=== PATIENT | male | born 1980 | race Caucasian/White ===

== ENCOUNTER 2019-05-27 15:26 | Emergency (ER) | payer SELFPAY ==
[2019-05-27] MEDS ORDERED: ASPIRIN 81 MG TABLET, CHEWABLE PO ONE (15:45)
--- NOTE | 2019-05-27 15:47 | ER Document Report ---
ED Medical Screen (RME) - General Chief Complaint: Chest Pain Stated Complaint: CHEST PAIN Time Seen by Provider: 05/27/19 15:42 Mode of Arrival: Ambulatory Information source: Patient Notes: 38-year-old male presents emergency department with midsternal chest pain that started today around 10. He reports that he was at work at [employer] when he started having cp. He has taken Zantac Tums without relief of symptoms. Reports he feels slightly short of breath. He became diaphoretic prior to arrival reports he has had pericarditis twice. Reports it feels around the same. Ports family history of cardiac disease. I have greeted and performed a rapid initial assessment of this patient. A comprehensive ED assessment and evaluation of the patient, analysis of test results and completion of the medical decision making process will be conducted by additional ED providers. Dictation of this chart was performed using voice recognition software; therefore, there may be some unintended grammatical errors. TRAVEL OUTSIDE OF THE [place] IN LAST 30 DAYS: No - Related Data Allergies/Adverse Reactions: No Known Allergies Allergy (Unverified 05/27/19 15:27) Past Medical History - Social History Frequency of alcohol use: None Drug Abuse: None Physical Exam - Vital signs Vitals: Temp Pulse Resp BP Pulse Ox 97.4 F 59 L 18 142/66 H 99 05/27/19 15:36 05/27/19 15:36 05/27/19 15:36 05/27/19 15:36 05/27/19 15:36 Course - Vital Signs Vital signs: Temp Pulse Resp BP Pulse Ox 97.4 F 59 L 18 142/66 H 99 05/27/19 15:36 05/27/19 15:36 05/27/19 15:36 05/27/19 15:36 05/27/19 15:36
[2019-05-27 16:16] LABS: HEMOGLOBIN 14.8 g/dL (13.5-17.0); MEAN CORPUSCULAR HGB CONC 34.4 g/dL (32.0-36.0); MEAN CORPUSCULAR VOLUME 84 fl (80-97); PLATELET COUNT 308 10^3/uL (150-450); RED CELL DISTRIBUTION WIDTH 13.2 % (11.5-14.0); WHITE BLOOD COUNT 10.6 10^3/uL (4.0-10.5)
[2019-05-27 16:26] LABS: APPEARANCE,URINE CLEAR; BILIRUBIN,URINE NEGATIVE (NEGATIVE); COLOR,URINE YELLOW; GLUCOSE, URINE NEGATIVE (NEGATIVE); KETONES,URINE NEGATIVE (NEGATIVE); LEUKOCYTE ESTERASE,URINE NEGATIVE (NEGATIVE); NITRITE,URINE NEGATIVE (NEGATIVE); PROTEIN,URINE NEGATIVE (NEGATIVE); URINE SPECIFIC GRAVITY 1.018; UROBILINOGEN,URINE NEGATIVE mg/dL (<2.0)
[2019-05-27 16:33] LABS: ALBUMIN 4.6 g/dL (3.5-5.0); ALKALINE PHOSPHATASE 53 U/L (38-126); ANION GAP 11 (5-19); ASPARTATE AMINO TRANSFERASE 79 U/L (17-59); BILIRUBIN,DIRECT 0.2 mg/dL (0.0-0.4); BILIRUBIN,TOTAL 0.4 mg/dL (0.2-1.3); BLOOD UREA NITROGEN 14 mg/dL (7-20); CALCIUM 10.4 mg/dL (8.4-10.2); CARBON DIOXIDE 30 mmol/L (22-30); CHLORIDE 102 mmol/L (98-107); GLUCOSE 117 mg/dL (75-110); POTASSIUM 4.3 mmol/L (3.6-5.0); TOTAL PROTEIN 7.6 g/dL (6.3-8.2)
[2019-05-27 16:37] LABS: ABSOLUTE LYMPHOCYTES# (MANUAL) 2.9 10^3/uL (0.5-4.7); ABSOLUTE MONOCYTES # (MANUAL) 1.1 10^3/uL (0.1-1.4); BASOPHILS % (MANUAL) 1 % (0-2); EOSINOPHILS % (MANUAL) 3 % (0-6); LYMPHOCYTES % (MANUAL) 25 % (13-45); MONOCYTES % (MANUAL) 10 % (3-13); SEGMENTED NEUTROPHILS % (MAN) 59 % (42-78); TOTAL CELLS COUNTED 100
[2019-05-27 16:38] LABS: PLATELET COMMENT ADEQUATE; POLYCHROMASIA SLIGHT; TOXIC GRANULATION 1+
[2019-05-27 16:41] LABS: CREATINE KINASE 2860 U/L (55-170)
--- NOTE | 2019-05-27 16:51 | RADIOLOGY REPORT (SQ) ---
EXAM DESCRIPTION: CHEST 2 VIEWS COMPLETED DATE/TIME: 05/27/2019 4:39 pm REASON FOR STUDY: CP COMPARISON: None. EXAM PARAMETERS: NUMBER OF VIEWS: two views TECHNIQUE: Digital Frontal and Lateral radiographic views of the chest acquired. RADIATION DOSE: NA LIMITATIONS: none FINDINGS: LUNGS AND PLEURA: No opacities, masses or pneumothorax. No pleural effusion. MEDIASTINUM AND HILAR STRUCTURES: No masses or contour abnormalities. HEART AND VASCULAR STRUCTURES: Heart normal size. No evidence for failure. BONES: No acute findings. HARDWARE: None in the chest. OTHER: No other significant finding. IMPRESSION: NO ACUTE RADIOGRAPHIC FINDING IN THE CHEST. TECHNICAL DOCUMENTATION: JOB ID: [id number] [employer]- All Rights Reserved Reading location - IP/workstation name: [email or web address]
[2019-05-27] MEDS ORDERED: NORMAL SALINE 1000 ML 1,000 ML IV ONE (17:28)
[2019-05-27] MEDS ORDERED: INDOMETHACIN 50 MG CAPSULE PO ONE (17:28)
--- NOTE | 2019-05-27 18:39 | EKG REPORT ---
SEVERITY:- ABNORMAL ECG - SINUS RHYTHM CONSIDER LEFT VENTRICULAR HYPERTROPHY : Confirmed by: Cricket Barr MD 27-May-2019 18:38:03
--- NOTE | 2019-05-27 19:01 | ER Document Report ---
ED Cardiac - General Chief Complaint: Chest Pain Stated Complaint: CHEST PAIN Time Seen by Provider: 05/27/19 15:42 Mode of Arrival: Ambulatory TRAVEL OUTSIDE OF THE [place] IN LAST 30 DAYS: No - HPI Notes: Patient presents complaining of chest pain. He states it started approximately 10 AM today. It has been constant. Nothing is made it better or worse. It was a sharp sensation in the center of his chest. He did have some sweating. He did have some shortness of breath. No significant nausea. No vomiting or diarrhea. No recent cold symptoms. No trauma. He denies any new or recent stress. He he states he did have a previous cardiac evaluation approximately 5 years ago which was unremarkable. He states that this was done in [place]. He does smoke daily. His father did of a heart attack at 44. Patient exercises daily without chest pain. Patient states he has had pericarditis twice in the past and this feels similar. - Related Data Allergies/Adverse Reactions: No Known Allergies Allergy (Unverified 05/27/19 15:27) Past Medical History - General Information source: Patient - Social History Smoking Status: Current Every Day Smoker Frequency of alcohol use: None Drug Abuse: None Family History: CAD Patient has suicidal ideation: No Patient has homicidal ideation: No Past Surgical History: Reports: Hx Orthopedic Surgery - left knee Review of Systems - Review of Systems Constitutional: denies: Chills, Fever Cardiovascular: Chest pain. denies: Palpitations Respiratory: Short of breath. denies: Cough Gastrointestinal: denies: Abdominal pain -: Yes All other systems reviewed and negative Physical Exam - Vital signs Vitals: Temp Pulse Resp BP Pulse Ox 97.4 F 59 L 18 142/66 H 99 05/27/19 15:36 05/27/19 15:36 05/27/19 15:36 05/27/19 15:36 05/27/19 15:36 Interpretation: Normal - General General appearance: Appears well, Alert - HEENT Head: Normocephalic, Atraumatic Eyes: Normal Pupils: PERRL - Respiratory Respiratory status: No respiratory distress Chest status: Nontender Breath sounds: Normal Chest palpation: Normal - Cardiovascular Rhythm: Regular Heart sounds: Normal auscultation Murmur: No - Abdominal Inspection: Normal Distension: No distension Bowel sounds: Normal Tenderness: Nontender Organomegaly: No organomegaly - Back Back: Normal, Nontender - Extremities General upper extremity: Normal inspection, Nontender, Normal color, Normal ROM, Normal temperature General lower extremity: Normal inspection, Nontender, Normal color, Normal ROM, Normal temperature, Normal weight bearing. No: Valarie's sign - Neurological Neuro grossly intact: Yes Cognition: Normal Orientation: AAOx4 Phoenix Coma Scale Eye Opening: Spontaneous Phoenix Coma Scale Verbal: Oriented Néstor Coma Scale Motor: Obeys Commands Néstor Coma Scale Total: 15 Speech: Normal Motor strength normal: LUE, RUE, LLE, RLE Sensory: Normal - Psychological Associated symptoms: Normal affect, Normal mood - Skin Skin Temperature: Warm Skin Moisture: Dry Skin Color: Normal Course - Re-evaluation Re-evalutation: 05/27/19 19:01 Patient presents with chest pain. His HEART Score is 2. His laboratories are unremarkable other than some mild rhabdomyolysis. His kidney function is normal. I did give him a liter of fluid. He does work out at the gym every day which would seem most consistent with this elevation of his creatinine kinase. He had no viral syndrome. His presentation does not seem consistent with coronary artery disease or pulmonary embolism. I am not sure that he has pericarditis but he does seem to have some type of pleuritic or pericardiac pain. I am going to try the patient on Indocin and have instructed him to discuss outpatient stress test with his physician. - Vital Signs Vital signs: Temp Pulse Resp BP Pulse Ox 97.4 F 59 L 18 142/66 H 99 05/27/19 15:36 05/27/19 15:36 05/27/19 15:36 05/27/19 15:36 05/27/19 15:36 - Laboratory Result Diagrams: 05/27/19 15:50 05/27/19 15:50 Laboratory results interpreted by me: 05/27/19 05/27/19 15:50 15:50 WBC 10.6 H Glucose 117 H Calcium 10.4 H AST 79 H Creatine Kinase 2860 H - Diagnostic Test Radiology reviewed: Image reviewed, Reports reviewed - EKG Interpretation by Nc EKG shows normal: Sinus rhythm Rate: Bradycardia - 59 Rhythm: NSR Agenda/QRS: No: Right axis deviation, Left axis deviation Additional EKG results interpreted by me: 05/27/19 18:59 Repeat EKG was performed at 1843. Patient has a bradycardic sinus rhythm. Rate is 53. There are no ischemic changes. There is no abnormal axis. There is no significant changes from the previous EKG. Discharge - Discharge Clinical Impression: Chest pain Qualifiers: Chest pain type: unspecified Qualified Code(s): R07.9 - Chest pain, unspecified Condition: Stable Disposition: HOME, SELF-CARE Instructions: Chest Pain of Unclear Cause ([facility]) Additional Instructions: Please call your family doctor as soon as possible to arrange follow-up with them to discuss an outpatient stress test Prescriptions: Indomethacin [Indocin 50 Mg Capsule] 50 mg PO DAILY 5 Days #5 capsule Referrals: DARA MCCONNELL MD [ACTIVE STAFF] - Follow up tomorrow
[2019-05-27 19:32] VITALS: BP 149/57
--- NOTE | 2019-05-28 07:18 | EKG REPORT ---
SEVERITY:- NORMAL ECG - SINUS RHYTHM : Confirmed by: Cricket Barr MD 28-May-2019 07:17:55
== END 2019-05-27 19:32 | disposition home or self-care (01) ==
LOC: ER 15:26
DX: R07.9 Chest pain, unspecified (principal); M62.82 Rhabdomyolysis; R61 Generalized hyperhidrosis; R06.02 Shortness of breath; R79.89 Other specified abnormal findings of blood chemistry; R00.1 Bradycardia, unspecified; F17.200 Nicotine dependence, unspecified, uncomplicated; Z82.49 Family history of ischemic heart disease and other diseases of the circulatory system; Z86.79 Personal history of other diseases of the circulatory system
CPT/HCPCS: 93005; 36415; 82550; 83690; 85025; 80053; 81001; 84484; 71046; 93010; J3490; J7030; 96360; 99285

== ENCOUNTER 2019-05-28 22:19 | Emergency (ER) | payer SELFPAY ==
[2019-05-28] MEDS ORDERED: ALBUTEROL SULFATE HFA (90 MCG/PUFF) 8 GM MDI (1 MDI/ER DISP) IH ONE (23:45)
[2019-05-28] MEDS ORDERED: KETOROLAC TROMETHAMINE INJ/PF 30 MG/1 ML SDV IV ONE (23:50)
--- NOTE | 2019-05-28 23:52 | ER Document Report ---
ED General - General Chief Complaint: Chest Pain Stated Complaint: CHEST PAIN Time Seen by Provider: 05/28/19 23:41 TRAVEL OUTSIDE OF THE [place] IN LAST 30 DAYS: No - HPI Notes: Patient presents to the emergency department with concern of chest pain. It is midsternal pressure waxes and wanes worse with deep breath. No recent cough congestion. He is a daily smoker. No known medical problems. He does have a family history of cardiac disease his father was in his 40s with his first heart attack. Patient exercises daily and does not have any shortness of breath with exertion. The pain is not relieved with leaning forward and taking a deep breath. - Related Data Allergies/Adverse Reactions: No Known Allergies Allergy (Unverified 05/27/19 15:27) Past Medical History - Social History Smoking Status: Current Every Day Smoker Family History: CAD Past Surgical History: Reports: Hx Orthopedic Surgery - left knee Review of Systems - Review of Systems Constitutional: No symptoms reported EENT: No symptoms reported Cardiovascular: See HPI Respiratory: No symptoms reported Gastrointestinal: No symptoms reported Genitourinary: No symptoms reported Male Genitourinary: No symptoms reported Musculoskeletal: No symptoms reported Skin: No symptoms reported Hematologic/Lymphatic: No symptoms reported Neurological/Psychological: No symptoms reported Physical Exam - Vital signs Vitals: Temp Pulse Resp BP Pulse Ox 98.3 F 56 L 20 140/73 H 100 05/28/19 23:50 05/28/19 23:50 05/28/19 23:50 05/28/19 23:50 05/28/19 23:50 - General General appearance: Appears well, Alert - HEENT Head: Normocephalic, Atraumatic Eyes: Normal Conjunctiva: Normal Cornea: Normal Extraocular movements intact: Yes Pupils: PERRL - Respiratory Respiratory status: No respiratory distress Chest status: Nontender Breath sounds: Normal Chest palpation: Normal - Cardiovascular Rhythm: Regular Heart sounds: Normal auscultation Murmur: No - Abdominal Inspection: Normal Distension: No distension Bowel sounds: Normal Tenderness: Nontender - Back Back: Normal, Nontender - Neurological Neuro grossly intact: Yes Cognition: Normal Orientation: AAOx4 Course - Re-evaluation Re-evalutation: 05/29/19 01:33 And symptoms greatly improved with Toradol. Discussed that this is consistent with pleurisy. Discussed smoking cessation. Will provide albuterol puffer as well as 5 days of steroids. He is still to continue to follow-up with a primary care doctor to establish primary care to have yearly labs including cholesterol due to his family history. Return precautions provided. - Vital Signs Vital signs: Temp Pulse Resp BP Pulse Ox 98.3 F 63 12 122/67 96 05/28/19 23:50 05/29/19 01:44 05/29/19 01:44 05/29/19 01:44 05/29/19 01:44 - Diagnostic Test Radiology reviewed: Reports reviewed - EKG Interpretation by Me EKG shows normal: Sinus rhythm Rate: Normal Rhythm: NSR - Normal intervals and axis no concerning ST depressions or elevations Discharge - Discharge Clinical Impression: Chest pain Qualifiers: Chest pain type: unspecified Qualified Code(s): R07.9 - Chest pain, unspecified Condition: Good Disposition: HOME, SELF-CARE Instructions: Pleurisy ([facility]) Additional Instructions: Use albuterol puffer provided today 1 to 2 puffs every 4 hours as needed For discussion please seek primary care referral from previous visit due to your family history. Return to the emergency department for any other concerns or worsening of symptoms. Your symptoms today are consistent with pleurisy but if anything changes please return the emergency department. Prescriptions: Prednisone [Deltasone 20 mg Tablet] 2 tab PO DAILY 5 Days tablet
--- NOTE | 2019-05-29 01:08 | RADIOLOGY REPORT (SQ) ---
EXAM DESCRIPTION: XR CHEST 1 VIEW COMPLETED DATE/TME: 05/28/2019 23:49 CLINICAL HISTORY: 38 years, Male, chest pain COMPARISON: 05/27/2019 chest NUMBER OF VIEWS: 1 TECHNIQUE: Portable chest LIMITATIONS: None. FINDINGS: Heart size is normal. Lungs are clear. No pneumothorax IMPRESSION: Negative chest copyright 2010 [employer]- All Rights Reserved
[2019-05-29 01:46] VITALS: BP 122/67
--- NOTE | 2019-05-29 06:38 | EKG REPORT ---
SEVERITY:- ABNORMAL ECG - SINUS RHYTHM CONSIDER LEFT VENTRICULAR HYPERTROPHY : Confirmed by: Cricket Barr MD 29-May-2019 06:37:48
== END 2019-05-29 01:44 | disposition home or self-care (01) ==
LOC: ER 22:19
DX: R07.9 Chest pain, unspecified (principal); F17.200 Nicotine dependence, unspecified, uncomplicated
CPT/HCPCS: 93005; 99285; 96374; 36415; 84484; 71045; 93010; J1885; J3490

== ENCOUNTER 2019-06-02 01:35 | Emergency (ER) | payer SELFPAY ==
[2019-06-02 03:00] LABS: ABSOLUTE BASOPHILS # (AUTO) 0.1 10^3/uL (0.0-0.2); ABSOLUTE EOSINOPHILS # (AUTO) 0.6 10^3/uL (0.0-0.6); ABSOLUTE LYMPHOCYTES (AUTO) 2.2 10^3/uL (0.5-4.7); ABSOLUTE MONOCYTES (AUTO) 1.7 10^3/uL (0.1-1.4); ABSOLUTE NEUT (AUTO) 10.7 10^3/uL (1.7-8.2); BASOPHILS % (AUTO) 0.5 % (0-2); EOSINOPHILS % (AUTO) 3.7 % (0-6); HEMATOCRIT 40.3 % (37.9-51.0); HEMOGLOBIN 13.8 g/dL (13.5-17.0); LYMPHOCYTES % (AUTO) 14.5 % (13-45); MEAN CORPUSCULAR HEMOGLOBIN 28.7 pg (27.0-33.4); MEAN CORPUSCULAR HGB CONC 34.3 g/dL (32.0-36.0); MEAN CORPUSCULAR VOLUME 84 fl (80-97); MONOCYTES % (AUTO) 11.1 % (3-13); PLATELET COUNT 279 10^3/uL (150-450); RED BLOOD COUNT 4.83 10^6/uL (4.35-5.55); RED CELL DISTRIBUTION WIDTH 13.4 % (11.5-14.0); SEGMENTED NEUTROPHILS % (AUTO) 70.2 % (42-78); TOTAL CELLS COUNTED % (AUTO) 100 %; WHITE BLOOD COUNT 15.3 10^3/uL (4.0-10.5)
[2019-06-02 03:21] LABS: ALBUMIN 3.9 g/dL (3.5-5.0); ALKALINE PHOSPHATASE 54 U/L (38-126); ANION GAP 11 (5-19); ASPARTATE AMINO TRANSFERASE 21 U/L (17-59); BILIRUBIN,DIRECT 0.2 mg/dL (0.0-0.4); BILIRUBIN,TOTAL 0.5 mg/dL (0.2-1.3); BLOOD UREA NITROGEN 20 mg/dL (7-20); CALCIUM 9.8 mg/dL (8.4-10.2); CARBON DIOXIDE 27 mmol/L (22-30); CHLORIDE 102 mmol/L (98-107); GLUCOSE 111 mg/dL (75-110); POTASSIUM 3.7 mmol/L (3.6-5.0); TOTAL PROTEIN 6.7 g/dL (6.3-8.2)
[2019-06-02] MEDS ORDERED: MAG HYDROX/AL HYDROX/SIMETH SUSP 30 ML UDCUP PO ONE (03:47)
[2019-06-02] MEDS ORDERED: METOCLOPRAMIDE HCL ORAL SOLN 10 MG/10 ML UDCUP PO ONE (03:47)
[2019-06-02] MEDS ORDERED: KETOROLAC TROMETHAMINE INJ/PF 30 MG/1 ML SDV IV ONE (03:47)
[2019-06-02] MEDS ORDERED: LIDOCAINE 2% VISCOUS SOLN 20 ML UDCUP PO ONE (03:47)
[2019-06-02 04:00] LABS: APPEARANCE,URINE CLEAR; BILIRUBIN,URINE NEGATIVE (NEGATIVE); COLOR,URINE YELLOW; GLUCOSE, URINE NEGATIVE (NEGATIVE); KETONES,URINE NEGATIVE (NEGATIVE); LEUKOCYTE ESTERASE,URINE NEGATIVE (NEGATIVE); NITRITE,URINE NEGATIVE (NEGATIVE); PROTEIN,URINE NEGATIVE (NEGATIVE); URINE SPECIFIC GRAVITY 1.023; UROBILINOGEN,URINE NEGATIVE mg/dL (<2.0)
--- NOTE | 2019-06-02 05:11 | RADIOLOGY REPORT (SQ) ---
EXAM DESCRIPTION: US ABDOMEN LIMITED COMPLETED DATE/TME: 06/02/2019 03:46 CLINICAL HISTORY: 38 years, Male, RUQ pain COMPARISON: None. TECHNIQUE: Limited right upper quadrant ultrasound LIMITATIONS: None. FINDINGS: Diffusely echogenic appearance to the liver consistent with fatty infiltrative change. Cholelithiasis. No gallbladder wall thickening or pericholecystic fluid. Negative sonographic Silverio sign. CBD measures 2.6 mm. Visualized right kidney, pancreas, abdominal aorta are unremarkable. No ascites IMPRESSION: Fatty infiltrative change to the liver. Cholelithiasis. No sonographic evidence for cholecystitis copyright 2010 [employer]- All Rights Reserved
--- NOTE | 2019-06-02 05:22 | ER Document Report ---
ED General - General Chief Complaint: Abdominal Pain Stated Complaint: ABDOMINAL PAIN Time Seen by Provider: 06/02/19 03:34 Notes: Patient is a 38-year-old male presents to the emergency department for epigastric and right upper abdominal pain for the last 5 days. Patient states he is vomited 3 times today. Patient's denying any diarrhea, denies any fever, denies any lower abdominal pain, denies any dysuria or back pain. Patient's denying any blood in his emesis. Patient has no medical problems, takes no daily medications, has no allergies. TRAVEL OUTSIDE OF THE [place] IN LAST 30 DAYS: No - Related Data Allergies/Adverse Reactions: No Known Allergies Allergy (Unverified 05/27/19 15:27) Past Medical History - General Information source: Patient - Social History Smoking Status: Current Every Day Smoker Chew tobacco use (# tins/day): No Frequency of alcohol use: None Drug Abuse: None Family History: CAD Patient has suicidal ideation: No Patient has homicidal ideation: No Past Surgical History: Reports: Hx Orthopedic Surgery - left knee Review of Systems - Review of Systems Constitutional: denies: Fever EENT: No symptoms reported Cardiovascular: No symptoms reported Respiratory: No symptoms reported Gastrointestinal: See HPI Genitourinary: No symptoms reported Male Genitourinary: No symptoms reported Musculoskeletal: No symptoms reported Skin: No symptoms reported Hematologic/Lymphatic: No symptoms reported Neurological/Psychological: No symptoms reported Physical Exam - Vital signs Vitals: Temp Pulse Resp BP Pulse Ox 98.0 F 80 18 142/75 H 100 06/02/19 01:41 06/02/19 01:41 06/02/19 01:41 06/02/19 01:41 06/02/19 01:41 - Notes Notes: GENERAL: Alert, interacts well. No acute distress. HEAD: Normocephalic, atraumatic. EYES: Pupils equal, round, and reactive to light. Extraocular movements intact. ENT: Oral mucosa moist, tongue midline. NECK: Full range of motion. Supple. Trachea midline. LUNGS: Clear to auscultation bilaterally, no wheezes, rales, or rhonchi. No respiratory distress. HEART: Regular rate and rhythm. No murmur ABDOMEN: Soft, right upper quadrant epigastric pain noted. Non-distended. Bowel sounds present in all 4 quadrants. No right or left lower abdominal pain noted EXTREMITIES: Moves all 4 extremities spontaneously. No edema, normal radial and dorsalis pedis pulses bilaterally. No cyanosis. BACK: no cervical, thoracic, lumbar midline tenderness. No saddle anesthesia, normal distal neurovascular exam. No CVA tenderness noted bilaterally NEUROLOGICAL: Alert and oriented x3. Normal speech. cranial nerves II through XII grossly intact PSYCH: Normal affect, normal mood. SKIN: Warm, dry, normal turgor. No rashes or lesions noted. Course - Re-evaluation Re-evalutation: 06/02/19 05:19 Laboratory 06/02/19 06/02/19 06/02/19 02:46 02:46 02:46 WBC 15.3 H RBC 4.83 Hgb 13.8 Hct 40.3 MCV 84 MCH 28.7 MCHC 34.3 RDW 13.4 Plt Count 279 Lymph % (Auto) 14.5 Geary % (Auto) 11.1 Eos % (Auto) 3.7 Baso % (Auto) 0.5 Absolute Neuts (auto) 10.7 H Absolute Lymphs (auto) 2.2 Absolute Monos (auto) 1.7 H Absolute Eos (auto) 0.6 Absolute Basos (auto) 0.1 Seg Neutrophils % 70.2 Sodium 139.7 Potassium 3.7 Chloride 102 Carbon Dioxide 27 Anion Gap 11 BUN 20 Creatinine 0.97 Est GFR ( Amer) > 60 Est GFR (MDRD) Non-Af > 60 Glucose 111 H Calcium 9.8 Total Bilirubin 0.5 Direct Bilirubin 0.2 Neonat Total Bilirubin Not Reportable Neonat Direct Bilirubin Not Reportable Neonat Indirect Bili Not Reportable AST 21 ALT 23 Alkaline Phosphatase 54 Total Protein 6.7 Albumin 3.9 Lipase 47.5 Urine Color YELLOW Urine Appearance CLEAR Urine pH 6.0 Ur Specific [place] 1.023 Urine Protein NEGATIVE Urine Glucose (UA) NEGATIVE Urine Ketones NEGATIVE Urine Blood NEGATIVE Urine Nitrite NEGATIVE Urine Bilirubin NEGATIVE Urine Urobilinogen NEGATIVE Ur Leukocyte Esterase NEGATIVE Urine WBC (Auto) 0 Urine RBC (Auto) 0 Urine Mucus (Auto) RARE Urine Ascorbic Acid NEGATIVE Abdomen Ultrasound 06/02/19 03:46 IMPRESSION: Fatty infiltrative change to the liver. Cholelithiasis. No sonographic evidence for cholecystitis copyright 2010 [employer]- All Rights Reserved Patient's ultrasound also cholelithiasis with no evidence of cholecystitis. Upon repeat examination the patient states his pain has resolved. I discussed elective outpatient cholecystectomy. Discussed following up with primary care provider and surgeon sap integration architect. At this time will discharge with return precautions and follow-up recommendations. Verbal discharge instructions given a the bedside and o pportunity for questions given. Medication warnings reviewed. Patient is in agreement with this plan and has verbalized understanding of return precautions and the need for primary care follow-up in the next 24-72 hours. This medical record was dictated with voice recognizing software. There may be grammatical, syntax errors that are unintended. - Vital Signs Vital signs: Temp Pulse Resp BP Pulse Ox 98.0 F 80 18 142/75 H 100 06/02/19 01:41 06/02/19 01:41 06/02/19 01:41 06/02/19 01:41 06/02/19 01:41 - Laboratory Result Diagrams: 06/02/19 02:46 06/02/19 02:46 Laboratory results interpreted by me: 06/02/19 06/02/19 02:46 02:46 WBC 15.3 H Absolute Neuts (auto) 10.7 H Absolute Monos (auto) 1.7 H Glucose 111 H Discharge - Discharge Clinical Impression: Epigastric abdominal pain Cholelithiasis Qualifiers: Cholelithiasis location: other site Biliary obstruction: without biliary obst ruction Qualified Code(s): K80.80 - Other cholelithiasis without obstruction Condition: Stable Disposition: HOME, SELF-CARE Instructions: Gallbladder Disease ([facility]) Additional Instructions: As we discussed you have been seen and treated in the emergency department for stones in your gallbladder. At this point time there are no signs of infection. Please use pain medication and nausea medication only as needed. I have provided phone numbers for a local surgeon. Please follow-up with them for elective removal of your gallbladder. Please return to the emergency room for any further concerns. Prescriptions: Ketorolac Tromethamine [Toradol 10 mg Tablet] 10 mg PO Q8HP PRN #24 tablet PRN Reason: Famotidine [Pepcid 40 mg Tablet] 40 mg PO BID #60 tablet Ondansetron [Zofran Odt 4 mg Tablet] 1 - 2 tab PO Q6 PRN #16 tab.rapdis PRN Reason: For Nausea/Vomiting Forms: Return to Work Referrals: JUAN HILLIARD MD [[facility]] - Follow up as needed
[2019-06-02 05:34] VITALS: BP 109/58
== END 2019-06-02 05:33 | disposition home or self-care (01) ==
LOC: ER 01:35
DX: K80.80 Other cholelithiasis without obstruction (principal); R10.13 Epigastric pain; R10.11 Right upper quadrant pain; R11.10 Vomiting, unspecified; F17.200 Nicotine dependence, unspecified, uncomplicated
CPT/HCPCS: 99284; 96374; 36415; 83690; 85025; 80053; 81001; 76705; J3490; J1885

== ENCOUNTER 2019-06-12 23:44 | Inpatient (IN) | payer OTHER ==
[2019-06-13] MEDS ORDERED: METOCLOPRAMIDE HCL INJ/PF 10 MG/2 ML SDV IV ONE (00:22)
[2019-06-13] MEDS ORDERED: MORPHINE SULFATE 10 MG/ML INJ IV ONE (00:22)
[2019-06-13] MEDS ORDERED: NORMAL SALINE 1000 ML 1,000 ML IV ONE ×2 (00:22→03:06)
--- NOTE | 2019-06-13 00:25 | ER Document Report ---
ED Medical Screen (RME) - General Stated Complaint: ABDOMINAL AND BACK PAIN Time Seen by Provider: 06/13/19 00:19 Mode of Arrival: Ambulatory Information source: Patient Notes: Patient is a 38-year-old male with known gallbladder disease who is scheduled to have a cholecystectomy done on Sunday by Dr. Prajapati presenting with chief complaint of abdominal pain and back pain. Patient reports this feels just like his gallbladder attacks. He states he has been vomiting all day. Patient reports he has been taking his Zofran and Toradol at home without relief. Exam: Heart sounds S1-S2 present with no ectopy noted. Generalized abdominal tenderness to palpation. Patient appears to be in moderate distress. I have greeted and performed a rapid initial assessment of this patient. A comprehensive ED assessment and evaluation of the patient, analysis of test results and completion of the medical decision making process will be conducted by additional ED providers. I have specifically instructed the patient or family members with the patient to immediately return to any nursing staff should anything change in the patient's condition or with their chief complaint. This medical record was dictated with voice recognizing software. There may be grammatical, syntax errors that are unintended. TRAVEL OUTSIDE OF THE [place] IN LAST 30 DAYS: No - Related Data Allergies/Adverse Reactions: No Known Allergies Allergy (Unverified 05/27/19 15:27) Past Medical History Past Surgical History: Reports: Hx Orthopedic Surgery - left knee Physical Exam - Vital signs Vitals: Temp Pulse Resp BP Pulse Ox 99.4 F 82 26 H 129/53 H 100 06/12/19 23:56 06/12/19 23:56 06/12/19 23:56 06/12/19 23:56 06/12/19 23:56 Course - Vital Signs Vital signs: Temp Pulse Resp BP Pulse Ox 99.4 F 82 26 H 129/53 H 100 06/12/19 23:56 06/12/19 23:56 06/12/19 23:56 06/12/19 23:56 06/12/19 23:56
[2019-06-13 00:47] LABS: ABSOLUTE BASOPHILS # (AUTO) 0.1 10^3/uL (0.0-0.2); ABSOLUTE EOSINOPHILS # (AUTO) 0.2 10^3/uL (0.0-0.6); ABSOLUTE LYMPHOCYTES (AUTO) 2.3 10^3/uL (0.5-4.7); ABSOLUTE MONOCYTES (AUTO) 1.5 10^3/uL (0.1-1.4); BASOPHILS % (AUTO) 0.5 % (0-2); EOSINOPHILS % (AUTO) 1.3 % (0-6); HEMATOCRIT 44.1 % (37.9-51.0); LYMPHOCYTES % (AUTO) 14.5 % (13-45); MEAN CORPUSCULAR HEMOGLOBIN 28.4 pg (27.0-33.4); MEAN CORPUSCULAR HGB CONC 34.1 g/dL (32.0-36.0); MEAN CORPUSCULAR VOLUME 83 fl (80-97); MONOCYTES % (AUTO) 9.1 % (3-13); PLATELET COUNT 253 10^3/uL (150-450); RED BLOOD COUNT 5.29 10^6/uL (4.35-5.55); RED CELL DISTRIBUTION WIDTH 13.2 % (11.5-14.0); SEGMENTED NEUTROPHILS % (AUTO) 74.6 % (42-78); TOTAL CELLS COUNTED % (AUTO) 100 %; WHITE BLOOD COUNT 16.1 10^3/uL (4.0-10.5)
[2019-06-13 01:02] LABS: ALBUMIN 4.7 g/dL (3.5-5.0); ALKALINE PHOSPHATASE 80 U/L (38-126); ANION GAP 13 (5-19); ASPARTATE AMINO TRANSFERASE 25 U/L (17-59); BILIRUBIN,DIRECT 0.1 mg/dL (0.0-0.4); BILIRUBIN,TOTAL 0.6 mg/dL (0.2-1.3); BLOOD UREA NITROGEN 16 mg/dL (7-20); CALCIUM 10.4 mg/dL (8.4-10.2); CARBON DIOXIDE 25 mmol/L (22-30); CHLORIDE 102 mmol/L (98-107); GLUCOSE 133 mg/dL (75-110); POTASSIUM 4.4 mmol/L (3.6-5.0); TOTAL PROTEIN 8.2 g/dL (6.3-8.2)
--- NOTE | 2019-06-13 01:44 | ER Document Report ---
ED General - General Chief Complaint: Abdominal Pain Stated Complaint: ABDOMINAL AND BACK PAIN Time Seen by Provider: 06/13/19 00:19 Mode of Arrival: Ambulatory TRAVEL OUTSIDE OF THE [place] IN LAST 30 DAYS: No - HPI Notes: This is a 38-year-old gentleman who presents today with a complaint of abdominal pain for the past 4 to 5 hours. Patient has a known history of gallstones and is scheduled for surgery on Sunday. Patient states that pain got acutely worse this evening. Associated symptoms include nausea and vomiting. He denies any fever or chills. Describes symptoms as severe. There are no obvious aggravating or relieving factors. I am - Related Data Allergies/Adverse Reactions: No Known Allergies Allergy (Unverified 05/27/19 15:27) Past Medical History - General Information source: Patient - Social History Smoking Status: Unknown if Ever Smoked Family History: CAD Patient has suicidal ideation: No Patient has homicidal ideation: No Past Surgical History: Reports: Hx Orthopedic Surgery - left knee Review of Systems - Review of Systems Constitutional: denies: Fever Cardiovascular: denies: Chest pain Gastrointestinal: Abdominal pain, Nausea, Vomiting. denies: Constipation -: Yes All other systems reviewed and negative Physical Exam - Vital signs Vitals: Temp Pulse Resp BP Pulse Ox 99.4 F 82 26 H 129/53 H 100 06/12/19 23:56 06/12/19 23:56 06/12/19 23:56 06/12/19 23:56 06/12/19 23:56 - General General appearance: Appears well, Alert - Respiratory Respiratory status: No respiratory distress Chest status: Nontender Breath sounds: Normal Chest palpation: Normal - Cardiovascular Rhythm: Regular Heart sounds: Normal auscultation Murmur: No - Abdominal Inspection: Normal Distension: No distension Bowel sounds: Normal Tenderness: Tender - There is right upper quadrant tenderness to palpation. No guarding or rebound., Silverio's sign. No: McBurney's point, Guarding Organomegaly: No organomegaly - Back Back: Normal, Nontender - Neurological Neuro grossly intact: Yes Cognition: Normal Orientation: AAOx4 [place] Coma Scale Eye Opening: Spontaneous Néstor Coma Scale Verbal: Oriented [place] Coma Scale Motor: Obeys Commands Néstor Coma Scale Total: 15 Speech: Normal Motor strength normal: LUE, RUE, LLE, RLE Sensory: Normal - Psychological Associated symptoms: Normal affect, Normal mood - Skin Skin Temperature: Warm Skin Moisture: Dry Skin Color: Normal Course - Re-evaluation Re-evalutation: 06/13/19 01:52 Differential diagnosis includes biliary colic due to cholelithiasis versus acute cholecystitis. 06/13/19 03:37 Patient is doing well. Labs and imaging reviewed and discussed. Patient's care discussed with Dr. Klein, surgery. He will admit for acute cholecystitis. - Vital Signs Vital signs: Temp Pulse Resp BP Pulse Ox 99.4 F 82 26 H 129/53 H 100 06/12/19 23:56 06/12/19 23:56 06/12/19 23:56 06/12/19 23:56 06/12/19 23:56 - Laboratory Result Diagrams: 06/13/19 00:30 06/13/19 00:30 Laboratory results interpreted by me: 06/13/19 06/13/19 00:30 00:30 WBC 16.1 H Absolute Neuts (auto) 12.0 H Absolute Monos (auto) 1.5 H Creatinine 1.26 H Glucose 133 H Calcium 10.4 H Discharge - Discharge Clinical Impression: Acute calculous cholecystitis Condition: Stable Disposition: ADMITTED INPATIENT Admitting Provider: Surgicalist - Dr. Klein Unit Admitted: OR
[2019-06-13] MEDS: HYDROMORPHONE HCL INJ/PF 2 MG/ML AMPULE IV PRN ×3 (01:54→05:55)
--- NOTE | 2019-06-13 02:14 | RADIOLOGY REPORT (SQ) ---
CLINICAL HISTORY: RUQ pain COMPARISON: None. TECHNIQUE: US ABDOMEN LIMITED on 06/13/2019 12:23 AM CDT FINDINGS: Liver is fatty in echotexture. Portal vein is patent. Gallbladder contains a large stone in the gallbladder neck. There is mild wall thickening at 4 mm. There is a positive sonographic Silverio sign. Common bile duct measures 2 mm. Right kidney measures 10.6 cm with a central 1.7 cm echogenic lesion. IMPRESSION: Cholelithiasis with possible associated cholecystitis. Indeterminate right renal lesion.
[2019-06-13] MEDS ORDERED: AMPICILLIN SOD/SULBACTAM 3 GM VIAL IV ONE (03:06)
[2019-06-13] MEDS ORDERED: PANTOPRAZOLE SODIUM 40 MG VIAL IV ONE (03:27)
[2019-06-13] MEDS ORDERED: GLUCAGON,HUMAN RECOMB 1 MG INJ SUBCUT PRN (05:13)
[2019-06-13] MEDS ORDERED: DEXTROSE 40% GEL 15 GM TUBE PO PRN ×2 (05:13)
[2019-06-13] MEDS ORDERED: DEXTROSE 50%-WATER 25 GM/50 ML DISP.SYRIN IV PRN ×2 (05:13)
--- NOTE | 2019-06-13 05:32 | PDOC H&P ---
History of Present Illness Admission Date/PCP: 06/13/19 03:43 Patient complains of: Right upper quadrant abdominal pain History of Present Illness: ROSE RENTERIA is a 38 year old male with known gallstones presenting with several hour history of persistent right upper quadrant and epigastric abdominal pain along with nausea, sweats, subjective fever. No history of jaundice. Patient has had several episodes of epigastric and right upper quadrant abdominal pain lasting for hours over the past several months. He was diagnosed with gallstones about a week and a half ago and was scheduled for surgery on elective basis. However with the persistence of the pain tonight patient came into the ER. Patient has had no prior abdominal surgeries. He has excellent exercise tolerance. He does have a family history of heart disease although he himself does not. Past Medical History Cardiac Medical History: Reports: None Pulmonary Medical History: Reports: None EENT Medical History: Reports: None Neurological Medical History: Reports: None Endocrine Medical History: Reports: None Renal/ Medical History: Reports: None Malignancy Medical History: Reports: None GI Medical History: Reports: Other - Gallstones Musculoskeltal Medical History: Reports: Other - Left meniscal tear in the remote past Skin Medical History: Reports: None Psychiatric Medical History: Reports: None Traumatic Medical History: Reports: None Hematology: Reports: None Infectious Medical History: Reports: None Past Surgical History Past Surgical History: Reports: Orthopedic Surgery - left knee Social History Smoking Status: Current Every Day Smoker Frequency of Alcohol Use: Rare Hx Recreational Drug Use: No Hx Prescription Drug Abuse: No Family History Family History: CAD Parental Family History Reviewed: Yes - Heart disease Children Family History Reviewed: Yes Sibling(s) Family History Reviewed.: Yes Medication/Allergy Home Medications: Indomethacin [Indocin 50 Mg Capsule] 50 mg PO DAILY 5 Days #5 capsule 05/27/19 Prednisone [Deltasone 20 mg Tablet] 2 tab PO DAILY 5 Days tablet 05/29/19 Famotidine [Pepcid 40 mg Tablet] 40 mg PO BID #60 tablet 06/02/19 Ketorolac Tromethamine [Toradol 10 mg Tablet] 10 mg PO Q8HP PRN #24 tablet 06/02/19 Ondansetron [Zofran Odt 4 mg Tablet] 1 - 2 tab PO Q6 PRN #16 tab.rapdis 06/02/19 Allergies/Adverse Reactions: No Known Allergies Allergy (Unverified 05/27/19 15:27) Physical Exam Vital Signs: Temp Pulse Resp BP Pulse Ox 98.7 F 67 18 135/65 H 98 06/13/19 04:30 06/13/19 04:30 06/13/19 04:30 06/13/19 04:30 06/13/19 04:30 Intake & Output 06/11/19 06/12/19 06/13/19 06:59 06:59 06:59 Weight 86.8 kg General appearance: PRESENT: no acute distress, cooperative Eye exam: PRESENT: conjunctiva pink Neck exam: PRESENT: other - Supple with no masses and no tenderness Respiratory exam: PRESENT: clear to auscultation demarco Cardiovascular exam: PRESENT: RRR GI/Abdominal exam: PRESENT: other - Soft, nondistended, epigastric and right upper quadrant abdominal tenderness without peritoneal signs. Extremities exam: PRESENT: other - No swelling and no tenderness Neurological exam: PRESENT: alert, awake Psychiatric exam: PRESENT: appropriate affect Skin exam: PRESENT: warm Results Laboratory Results: 06/13/19 00:30 06/13/19 00:30 06/13/19 06/13/19 00:30 00:30 WBC 16.1 H RBC 5.29 Hgb 15.0 Hct 44.1 MCV 83 MCH 28.4 MCHC 34.1 RDW 13.2 Plt Count 253 Seg Neutrophils % 74.6 Sodium 139.7 Potassium 4.4 Chloride 102 Carbon Dioxide 25 Anion Gap 13 BUN 16 Creatinine 1.26 H Est GFR ( Amer) > 60 Glucose 133 H Calcium 10.4 H Total Bilirubin 0.6 AST 25 Alkaline Phosphatase 80 Total Protein 8.2 Albumin 4.7 Lipase 133.8 Impressions: Abdomen Ultrasound 06/13/19 00:23 IMPRESSION: Cholelithiasis with possible associated cholecystitis. Indeterminate right renal lesion. Assessment & Plan - Diagnosis (1) Acute calculous cholecystitis Is this a current diagnosis for this admission?: Yes Plan: Plan admission, IV antibiotics, laparoscopic cholecystectomy possible open cholecystectomy today. I have discussed with the patient the risk and benefits of the surgery including risk of bile duct injury, intestinal injury, bleeding, infection, cardiopulmonary complications, postcholecystectomy diarrhea, possibility of conversion to an open procedure. Patient understands and agrees to proceed.
[2019-06-13] MEDS: MORPHINE SULFATE 10 MG/ML INJ IV PRN ×2 (07:50→20:26)
[2019-06-13] MEDS ORDERED: MIDAZOLAM 2 MG/2 ML INJ ONE (08:08)
[2019-06-13] MEDS ORDERED: KETOROLAC TROMETHAMINE 60 MG/2 ML SDV ONE (08:08)
[2019-06-13] MEDS ORDERED: HYDROMORPHONE HCL INJ/PF 2 MG/ML AMPULE ONE (08:08)
[2019-06-13] MEDS ORDERED: FENTANYL CITRATE INJ/PF 100 MCG/2 ML AMPUL ONE ×2 (08:08→10:40)
[2019-06-13] MEDS ORDERED: DEXAMETHASONE SOD PHOSPHATE INJ 4 MG/1 ML VIAL ONE (08:09)
[2019-06-13] MEDS ORDERED: ONDANSETRON HCL INJ/PF 4 MG/2 ML SDV ONE (08:09)
[2019-06-13] MEDS ORDERED: PROPOFOL INJ 200 MG/20 ML VIAL IV ONE (08:09)
[2019-06-13] MEDS ORDERED: BUPIVACAINE HCL 0.5%-EPI 1:200000 INJ/PF 30 ML VIAL ONE (08:47)
--- NOTE | 2019-06-13 08:53 | PDOC PROGRESS REPORT ---
Subjective Progress Note for:: 06/13/19 Subjective:: Patient is complaining of right upper quadrant pain Reason For Visit: ACUTE CHOLECYSTITIS Physical Exam Vital Signs: Temp Pulse Resp BP Pulse Ox 98.8 F 65 20 145/62 H 96 06/13/19 05:15 06/13/19 05:15 06/13/19 05:15 06/13/19 05:15 06/13/19 05:15 Intake & Output 06/12/19 06/13/19 06/14/19 06:59 06:59 06:59 Intake Total 0 Balance 0 Weight 88.5 kg General appearance: PRESENT: mild distress Head exam: PRESENT: atraumatic Eye exam: PRESENT: EOMI Mouth exam: PRESENT: dry mucosa Neck exam: PRESENT: full ROM Respiratory exam: PRESENT: clear to auscultation demarco Cardiovascular exam: PRESENT: RRR GI/Abdominal exam: PRESENT: Silverio's sign - Positive, tenderness - Right upper quadrant Results Laboratory Results: 06/13/19 00:30 06/13/19 00:30 06/13/19 06/13/19 00:30 00:30 WBC 16.1 H RBC 5.29 Hgb 15.0 Hct 44.1 MCV 83 MCH 28.4 MCHC 34.1 RDW 13.2 Plt Count 253 Seg Neutrophils % 74.6 Sodium 139.7 Potassium 4.4 Chloride 102 Carbon Dioxide 25 Anion Gap 13 BUN 16 Creatinine 1.26 H Est GFR ( Amer) > 60 Glucose 133 H Calcium 10.4 H Total Bilirubin 0.6 AST 25 Alkaline Phosphatase 80 Total Protein 8.2 Albumin 4.7 Lipase 133.8 Impressions: Abdomen Ultrasound 06/13/19 00:23 IMPRESSION: Cholelithiasis with possible associated cholecystitis. Indeterminate right renal lesion. Assessment & Plan - Diagnosis (1) Acute calculous cholecystitis Is this a current diagnosis for this admission?: Yes - Plan Summary Plan Summary: Assessment: Acute cholecystitis Cholelithiasis Blood pressure count elevated 16,000 Normal liver profile No past medical history except for tobacco abuse Plan: Laparoscopic cholecystectomy possible open possible cholangiogram today. Procedure, risks, benefits, complications, including the possibility of bleeding from the liver and/or injury to the bile ducts which may require transfer to a tertiary center for open repair have been explained to the patient, his que stions were answered, and he decides to proceed
[2019-06-13] MEDS ORDERED: AMPICILLIN SODIUM/SULBACTAM NA 3 GM in NORMAL SALINE 100 ML IV SCH ×4 (09:00)
[2019-06-13] MEDS ORDERED: MEPERIDINE HCL/PF INJ 25 MG/1 ML DISP.SYRIN IV PRN (09:37)
[2019-06-13] MEDS ORDERED: ONDANSETRON HCL INJ/PF 4 MG/2 ML SDV IV PRN (09:37)
[2019-06-13] MEDS ORDERED: OXYCODONE-ACETAMINOPHEN 5-325 MG TABLET PO PRN ×2 (09:37)
[2019-06-13] MEDS ORDERED: FENTANYL CITRATE INJ/PF 100 MCG/2 ML AMPUL IV PRN ×3 (09:37)
[2019-06-13] MEDS ORDERED: PROMETHAZINE HCL INJ 25 MG/1 ML VIAL IV PRN ×2 (09:37)
[2019-06-13] MEDS ORDERED: DIPHENHYDRAMINE HCL 50 MG/ML VIAL IV PRN (09:37)
[2019-06-13] MEDS ORDERED: MORPHINE SULFATE 10 MG/ML INJ IV PRN (09:37)
[2019-06-13] MEDS ORDERED: GLYCOPYRROLATE 1 MG/5 ML VIAL ONE (10:10)
[2019-06-13] MEDS ORDERED: NEOSTIGMINE METHYLSULFATE 10 MG/10 ML VIAL ONE (10:10)
[2019-06-13] MEDS ORDERED: VECURONIUM BROMIDE INJ 10 MG VIAL IV ONE (10:10)
[2019-06-13] MEDS ORDERED: SUCCINYLCHOLINE CHLORIDE INJ 200 MG/10 ML VIAL ONE (10:10)
--- NOTE | 2019-06-13 11:28 | Operative Report ---
Operative Report DATE OF SURGERY: 06/13/19 PREOPERATIVE DIAGNOSIS: Acute cholecystitis with cholelithiasis POSTOPERATIVE DIAGNOSIS: gangrenous acute cholecystitis with cholelithiasis OPERATION: Laparoscopic cholecystectomy, needle cholecystostomy SURGEON: AICHA ESTEVES ANESTHESIA: Local - 20 mL half percent Marcaine without epinephrine TISSUE REMOVED OR ALTERED: Gallbladder and stones COMPLICATIONS: None ESTIMATED BLOOD LOSS: 20 mL INTRAOPERATIVE FINDINGS: Acute gangrenous cholecystitis with cholelithiasis PROCEDURE: The procedure was done in the operating room. The patient was placed in a supine position, general anesthesia induced by endotracheal intubation[, Toro catheter was inserted], the abdomen was prepped and draped in usual fashion. An incision was made just above the umbilicus with a #15 blade, the skin was tented with towel clips and a 5 mm port with Optiview adapter and scope was inserted through the abdominal wall into the peritoneal cavity. CO2 pneumoperitoneum was obtained, under direct visualization a 12 mm port was inserted in the epigastrium and to 5 mm ports were placed in the right lateral quadrant of the abdomen under direct visualization. The patient was placed in steep reverse Trendelenburg position, the right side was elevated, the gallbladder was found to be gangrenous, severely inflamed, with omentum attached to it, and as the omentum was removed the fundus of the gallbladder ruptured the with spillage of bile which was promptly aspirated. The gallbladder fundus was grasped and the gallbladder was elevated and retroflexed; the cystic neck was identified, grasped, and pulled anterior to the patient's right with exposure of the t riangle of Cal[place]. The critical view of safety was obtained by dividing the peritoneal attachments of the gallbladder body both medially and laterally with a hook cautery. When this was accomplished, the hook cautery dissection was continued toward the cystic neck. An opening was then obtained posterior to the cystic duct which was enlarged with a peanut dissector and with a right angle dissector. Once the critical view of safety was obtained, the cystic duct was carefully dissected with a hook cautery. Due to the severe inflammation, the 2 structures could not be both where divided using an Endo HOWARD with blue load. The gallbladder was extracted from the peritoneal cavity with an Endobag through the epigastric port. The pneumoperitoneum was then re-established, the gallbladder fossa was examined, local bleeders were cauterized, and no active bleeding or bile staining were identified. The right upper quadrant was then irrigated with normal saline until clear. A 15 mm Zambian round Maverick drain was inserted through the epigastric port and extracted from the left upper quadrant abdominal port; it was placed in the gallbladder fossa under direct visualization and secured to the skin with a 2-0 nylon suture. A large piece of Surgicel was inserted through the epigastric port and placed in the gallbladder fossa. The epigastric fascial defect was closed with a [id number] 0 Vicryl suture, placed with a fascia closure device under direct visualization, and left untied. All instruments were removed, the CO2 pneumoperitoneum was released, and all the ports were removed. The epigastric fascial defect was closed with the previously placed [id number] 0 Vicryl suture, all skin incisions were closed with a 4-0 PDS running subcuticular suture, and Dermabond was applied. The drain was connected to bulb suction. The patient tolerated the procedure well, was extubated, and transferred to the recovery room in satisfactory conditions.
[2019-06-13] MEDS ORDERED: NORMAL SALINE 1000 ML 1,000 ML IV PRN (11:39)
[2019-06-13] MEDS ORDERED: PIPERACILLIN/TAZOBACTAM 3.375 GM VIAL IV SCH (12:00)
[2019-06-13] MEDS ORDERED: ACETAMINOPHEN 1,000 MG/100 ML RTUPB IV SCH (12:00)
[2019-06-13] MEDS: FAMOTIDINE INJ/PF 20 MG/2 ML SDV IV SCH ×2 (13:19→22:23)
--- NOTE | 2019-06-13 13:38 | EKG REPORT ---
SEVERITY:- NORMAL ECG - SINUS RHYTHM : Confirmed by: Ariana Correa MD 13-Jun-2019 13:38:02
[2019-06-13] MEDS: ACETAMINOPHEN 1,000 MG/100 ML RTUPB IV SCH ×2 (15:07→22:23)
[2019-06-13] MEDS: PIPERACILLIN SODIUM/TAZOBACTAM 3.375 GM in NORMAL SALINE 100 ML IV SCH ×2 (15:42→20:27)
[2019-06-14] MEDS: ACETAMINOPHEN 1,000 MG/100 ML RTUPB IV SCH (02:31)
[2019-06-14] MEDS: PIPERACILLIN SODIUM/TAZOBACTAM 3.375 GM in NORMAL SALINE 100 ML IV SCH ×5 (05:08→23:17)
[2019-06-14 05:10] LABS: HEMATOCRIT 34.8 % (37.9-51.0); MEAN CORPUSCULAR HEMOGLOBIN 28.6 pg (27.0-33.4); MEAN CORPUSCULAR HGB CONC 34.8 g/dL (32.0-36.0); MEAN CORPUSCULAR VOLUME 82 fl (80-97); PLATELET COUNT 205 10^3/uL (150-450); RED BLOOD COUNT 4.24 10^6/uL (4.35-5.55); RED CELL DISTRIBUTION WIDTH 13.3 % (11.5-14.0); WHITE BLOOD COUNT 24.5 10^3/uL (4.0-10.5)
[2019-06-14 05:16] LABS: HEMOGLOBIN 12.1 g/dL (13.5-17.0)
[2019-06-14 05:22] LABS: ALBUMIN 3.3 g/dL (3.5-5.0); ALKALINE PHOSPHATASE 54 U/L (38-126); ANION GAP 9 (5-19); ASPARTATE AMINO TRANSFERASE 45 U/L (17-59); BILIRUBIN,DIRECT 0.2 mg/dL (0.0-0.4); BILIRUBIN,TOTAL 0.2 mg/dL (0.2-1.3); BLOOD UREA NITROGEN 15 mg/dL (7-20); CARBON DIOXIDE 27 mmol/L (22-30); CHLORIDE 102 mmol/L (98-107); GLUCOSE 124 mg/dL (75-110); POTASSIUM 4.3 mmol/L (3.6-5.0); TOTAL PROTEIN 6.1 g/dL (6.3-8.2)
[2019-06-14 06:19] LABS: ABSOLUTE LYMPHOCYTES# (MANUAL) 1.7 10^3/uL (0.5-4.7); ABSOLUTE MONOCYTES # (MANUAL) 1.2 10^3/uL (0.1-1.4); BAND NEUTROPHILS % (MANUAL) 4 % (3-5); BASOPHILS % (MANUAL) 0 % (0-2); EOSINOPHILS % (MANUAL) 0 % (0-6); LYMPHOCYTES % (MANUAL) 7 % (13-45); MONOCYTES % (MANUAL) 5 % (3-13); PLATELET COMMENT ADEQUATE; RBC MORPHOLOGY COMMENT NORMO-CYTIC/CHROMIC; SEGMENTED NEUTROPHILS % (MAN) 84 % (42-78); TOTAL CELLS COUNTED 100
[2019-06-14] MEDS ORDERED: ACETAMINOPHEN 325 MG TABLET PO PRN (08:14)
[2019-06-14] MEDS ORDERED: NORMAL SALINE 1000 ML 1,000 ML IV PRN (08:16)
--- NOTE | 2019-06-14 08:20 | PDOC PROGRESS REPORT ---
Subjective Progress Note for:: 06/14/19 Subjective:: Patient comfortable, denies nausea, vomiting, abdominal pain except for discomfort at the abdominal incision sites tolerating p.o. well Reason For Visit: ACUTE CHOLECYSTITIS Physical Exam Vital Signs: Temp Pulse Resp BP Pulse Ox 97.5 F 58 L 17 119/54 L 95 06/13/19 23:33 06/13/19 23:33 06/13/19 23:33 06/13/19 23:33 06/13/19 23:33 Intake & Output 06/13/19 06/14/19 06/15/19 06:59 06:59 06:59 Intake Total 0 4250 Output Total 2200 Balance 0 0 Weight 88.5 kg 89.2 kg General appearance: PRESENT: no acute distress Respiratory exam: PRESENT: clear to auscultation demarco Cardiovascular exam: PRESENT: RRR GI/Abdominal exam: PRESENT: soft, other - All incisions are clean, dry, and intact; right upper quadrant LUIS drain = filled with serosanguineous fluid Results Laboratory Results: 06/14/19 03:48 06/14/19 03:48 06/14/19 06/14/19 03:48 03:48 WBC 24.5 H RBC 4.24 L Hgb 12.1 L D Hct 34.8 L MCV 82 MCH 28.6 MCHC 34.8 RDW 13.3 Plt Count 205 Seg Neutrophils % Not Reportable Sodium 138.0 Potassium 4.3 Chloride 102 Carbon Dioxide 27 Anion Gap 9 BUN 15 Creatinine 0.89 Est GFR ( Amer) > 60 Glucose 124 H Calcium 9.0 Total Bilirubin 0.2 AST 45 Alkaline Phosphatase 54 Total Protein 6.1 L Albumin 3.3 L Impressions: Abdomen Ultrasound 06/13/19 00:23 IMPRESSION: Cholelithiasis with possible associated cholecystitis. Indeterminate right renal lesion. Assessment & Plan - Diagnosis (1) Acute calculous cholecystitis Is this a current diagnosis for this admission?: Yes - Time Time Spent with patient: 25-34 minutes - Plan Summary Plan Summary: Assessment: Postop day #1 following laparoscopic cholecystectomy for acute gangrenous calculus cholecystitis Patient doing well without complaints Vital signs stable Good urine output LUIS output about 180 mL since surgery with serosanguineous fluid White blood cell count 24,000, increased since yesterday most likely reactive Remaining blood work within normal limits Physical exam unremarkable Plan: Decrease IV fluids rate to 75 mL/h Stop narcotics Start oral Tylenol with IV Toradol as needed for pain control Patient to remain in the hospital until the right blood cell count approaches normal value
[2019-06-14] MEDS: FAMOTIDINE 20 MG TABLET PO SCH ×2 (10:17→21:28)
[2019-06-14] MEDS: ENOXAPARIN SODIUM INJ 40 MG/0.4 ML DISP.SYRIN SUBCUT SCH (10:17)
[2019-06-14 10:37] LABS: APPEARANCE,URINE CLEAR; BILIRUBIN,URINE NEGATIVE (NEGATIVE); COLOR,URINE YELLOW; GLUCOSE, URINE NEGATIVE (NEGATIVE); KETONES,URINE NEGATIVE (NEGATIVE); LEUKOCYTE ESTERASE,URINE NEGATIVE (NEGATIVE); NITRITE,URINE NEGATIVE (NEGATIVE); PROTEIN,URINE NEGATIVE (NEGATIVE); URINE SPECIFIC GRAVITY 1.024; UROBILINOGEN,URINE NEGATIVE mg/dL (<2.0)
[2019-06-14] MEDS ORDERED: TRAMADOL HCL 50 MG TABLET PO PRN ×2 (14:19→16:30)
[2019-06-15 05:21] LABS: ABSOLUTE BASOPHILS # (AUTO) 0.1 10^3/uL (0.0-0.2); ABSOLUTE EOSINOPHILS # (AUTO) 0.2 10^3/uL (0.0-0.6); ABSOLUTE LYMPHOCYTES (AUTO) 2.5 10^3/uL (0.5-4.7); ABSOLUTE MONOCYTES (AUTO) 1.2 10^3/uL (0.1-1.4); ABSOLUTE NEUT (AUTO) 10.1 10^3/uL (1.7-8.2); BASOPHILS % (AUTO) 0.7 % (0-2); EOSINOPHILS % (AUTO) 1.1 % (0-6); HEMATOCRIT 32.3 % (37.9-51.0); HEMOGLOBIN 11.1 g/dL (13.5-17.0); LYMPHOCYTES % (AUTO) 17.9 % (13-45); MEAN CORPUSCULAR HEMOGLOBIN 28.3 pg (27.0-33.4); MEAN CORPUSCULAR HGB CONC 34.3 g/dL (32.0-36.0); MEAN CORPUSCULAR VOLUME 83 fl (80-97); MONOCYTES % (AUTO) 8.3 % (3-13); PLATELET COUNT 191 10^3/uL (150-450); RED BLOOD COUNT 3.92 10^6/uL (4.35-5.55); RED CELL DISTRIBUTION WIDTH 13.4 % (11.5-14.0); TOTAL CELLS COUNTED % (AUTO) 100 %
[2019-06-15 05:45] LABS: ALBUMIN 2.9 g/dL (3.5-5.0); ALKALINE PHOSPHATASE 47 U/L (38-126); ANION GAP 7 (5-19); ASPARTATE AMINO TRANSFERASE 30 U/L (17-59); BILIRUBIN,DIRECT 0.1 mg/dL (0.0-0.4); BILIRUBIN,TOTAL 0.1 mg/dL (0.2-1.3); BLOOD UREA NITROGEN 18 mg/dL (7-20); CALCIUM 8.7 mg/dL (8.4-10.2); CARBON DIOXIDE 29 mmol/L (22-30); CHLORIDE 105 mmol/L (98-107); GLUCOSE 98 mg/dL (75-110); POTASSIUM 4.1 mmol/L (3.6-5.0); TOTAL PROTEIN 5.6 g/dL (6.3-8.2)
[2019-06-15] MEDS: PIPERACILLIN SODIUM/TAZOBACTAM 3.375 GM in NORMAL SALINE 100 ML IV SCH ×3 (05:59→17:57)
--- NOTE | 2019-06-15 10:50 | PDOC PROGRESS REPORT ---
Subjective Progress Note for:: 06/15/19 Subjective:: Patient is comfortable, he has no complaints Reason For Visit: ACUTE CHOLECYSTITIS Physical Exam Vital Signs: Temp Pulse Resp BP Pulse Ox 98.1 F 57 L 16 116/53 L 95 06/15/19 08:11 06/15/19 08:11 06/15/19 08:11 06/15/19 08:11 06/15/19 08:11 Intake & Output 06/14/19 06/15/19 06/16/19 06:59 06:59 06:59 Intake Total 4250 1400 Output Total 2200 80 Balance 2050 1320 Weight 89.2 kg 88.3 kg General appearance: PRESENT: no acute distress Respiratory exam: PRESENT: clear to auscultation demarco Cardiovascular exam: PRESENT: RRR GI/Abdominal exam: PRESENT: normal bowel sounds, soft, other - All wounds are clean, dry, and intact; right upper quadrant = presence of LUIS drain with serosanguineous fluid Results Laboratory Results: 06/15/19 04:01 06/15/19 04:01 06/15/19 06/15/19 04:01 04:01 WBC 14.0 H RBC 3.92 L Hgb 11.1 L Hct 32.3 L MCV 83 MCH 28.3 MCHC 34.3 RDW 13.4 Plt Count 191 Seg Neutrophils % 72.0 Sodium 141.2 Potassium 4.1 Chloride 105 Carbon Dioxide 29 Anion Gap 7 BUN 18 Creatinine 1.11 Est GFR ( Amer) > 60 Glucose 98 Calcium 8.7 Total Bilirubin 0.1 L AST 30 Alkaline Phosphatase 47 Total Protein 5.6 L Albumin 2.9 L Impressions: Abdomen Ultrasound 06/13/19 00:23 IMPRESSION: Cholelithiasis with possible associated cholecystitis. Indeterminate right renal lesion. Assessment & Plan - Diagnosis (1) Acute calculous cholecystitis Is this a current diagnosis for this admission?: Yes - Time Time Spent with patient: 15-24 minutes - Plan Summary Plan Summary: Assessment: Postoperative day #2 following laparoscopic cholecystectomy for acute gangrenous calculus cholecystitis Bowel signs stable patient afebrile Patient has no complaints of Tolerating p.o. well White blood cell count 14,000 Other blood work within normal limits LUIS output 110 mL during the past 24 hours, serosanguineous fluid Plan: Stop IV fluids Continue IV antibiotics Home tomorrow with the drain
[2019-06-15] MEDS: ENOXAPARIN SODIUM INJ 40 MG/0.4 ML DISP.SYRIN SUBCUT SCH (10:55)
[2019-06-15] MEDS: FAMOTIDINE 20 MG TABLET PO SCH ×2 (10:56→21:35)
[2019-06-16] MEDS: PIPERACILLIN SODIUM/TAZOBACTAM 3.375 GM in NORMAL SALINE 100 ML IV SCH ×2 (00:50→06:05)
[2019-06-16 05:24] LABS: ABSOLUTE BASOPHILS # (AUTO) 0.1 10^3/uL (0.0-0.2); ABSOLUTE EOSINOPHILS # (AUTO) 0.3 10^3/uL (0.0-0.6); ABSOLUTE LYMPHOCYTES (AUTO) 3.2 10^3/uL (0.5-4.7); ABSOLUTE MONOCYTES (AUTO) 1.1 10^3/uL (0.1-1.4); ABSOLUTE NEUT (AUTO) 5.8 10^3/uL (1.7-8.2); BASOPHILS % (AUTO) 1.2 % (0-2); EOSINOPHILS % (AUTO) 3.2 % (0-6); HEMATOCRIT 34.9 % (37.9-51.0); HEMOGLOBIN 11.9 g/dL (13.5-17.0); LYMPHOCYTES % (AUTO) 30.4 % (13-45); MEAN CORPUSCULAR HEMOGLOBIN 28.4 pg (27.0-33.4); MEAN CORPUSCULAR HGB CONC 34.1 g/dL (32.0-36.0); MEAN CORPUSCULAR VOLUME 83 fl (80-97); MONOCYTES % (AUTO) 10.2 % (3-13); PLATELET COUNT 231 10^3/uL (150-450); RED BLOOD COUNT 4.19 10^6/uL (4.35-5.55); RED CELL DISTRIBUTION WIDTH 13.4 % (11.5-14.0); TOTAL CELLS COUNTED % (AUTO) 100 %; WHITE BLOOD COUNT 10.6 10^3/uL (4.0-10.5)
[2019-06-16 05:43] LABS: ALKALINE PHOSPHATASE 47 U/L (38-126); ANION GAP 6 (5-19); ASPARTATE AMINO TRANSFERASE 25 U/L (17-59); BILIRUBIN,DIRECT 0.1 mg/dL (0.0-0.4); BILIRUBIN,TOTAL 0.1 mg/dL (0.2-1.3); BLOOD UREA NITROGEN 16 mg/dL (7-20); CALCIUM 8.9 mg/dL (8.4-10.2); CARBON DIOXIDE 28 mmol/L (22-30); CHLORIDE 105 mmol/L (98-107); GLUCOSE 85 mg/dL (75-110); POTASSIUM 4.3 mmol/L (3.6-5.0); TOTAL PROTEIN 5.7 g/dL (6.3-8.2)
--- NOTE | 2019-06-16 10:18 | PDOC DISCHARGE SUMMARY ---
General - Admit/Disc Date/PCP Admission Date/Primary Care Provider: 06/13/19 03:43 Discharge Date: 06/16/19 - Discharge Diagnosis Final Diagnosis: Acute cholecystitis with cholelithiasis - Assessment Summary: The patient is a 38-year-old male presented emergency department via ground rescue complaining of acute onset abdominal pain. Was evaluated by a gallbladder ultrasonography and found to have evidence of acute cholecystitis with cholelithiasis Surgical stain was assaulted and the patient was advised admission. He was kept n.p.o. on IV fluids and intravenous antibiotics. He was taken to the operating room by Dr. Zohaib Marrero on 06/13/2019 and underwent laparoscopic cholecystectomy with drain placement. He had a very inflamed gallbladder and his final path report showed acute and chronic cholecystitis with cholelithiasis. The patient was kept on intravenous antibiotics for 3 days, started on a diet and tolerated this well. His pain was managed without narcotics. On the third postoperative day his drain was removed as it was putting out serous fluid only. He was felt to have received maximum from the hospitalization was discharged home. - Additional Information Resuscitation Status: Full Code Discharge Activity: Activity As Tolerated - Patient will follow-up with [facility] in 1 to 2 weeks; he may shower; he is instructed on anticipating some residual drainage from the right upper quadrant drain site. He will take Tylenol and/or Motrin as needed pain. Referrals: [facility] [Provider Group] (S/P EDINSON ANTUNEZ 06/13) Home Medications: Indomethacin [Indocin 50 Mg Capsule] 50 mg PO DAILY 5 Days #5 capsule 05/27/19 Prednisone [Deltasone 20 mg Tablet] 2 tab PO DAILY 5 Days tablet 05/29/19 Famotidine [Pepcid 40 mg Tablet] 40 mg PO BID #60 tablet 06/02/19 Ketorolac Tromethamine [Toradol 10 mg Tablet] 10 mg PO Q8HP PRN #24 tablet 06/02/19 Ondansetron [Zofran Odt 4 mg Tablet] 1 - 2 tab PO Q6 PRN #16 tab.rapdis 06/02/19 History of Present Illiness History of Present Illness: ROSE RENTERIA is a 38 year old male Physical Exam Vital Signs: Temp Pulse Resp BP Pulse Ox 98.2 F 57 L 16 132/55 H 98 06/15/19 15:42 06/15/19 15:42 06/15/19 15:42 06/15/19 15:42 06/15/19 15:42 Intake & Output 06/15/19 06/16/19 06/17/19 06:59 06:59 06:59 Intake Total 1400 1260 Output Total 80 115 Balance 1320 1145 Weight 88.3 kg 91.7 kg Results Laboratory Results: WBC 10.6 10^3/uL (4.0-10.5) H 06/16/19 04:07 RBC 4.19 10^6/uL (4.35-5.55) L 06/16/19 04:07 Hgb 11.9 g/dL (13.5-17.0) L 06/16/19 04:07 Hct 34.9 % (37.9-51.0) L 06/16/19 04:07 MCV 83 fl (80-97) 06/16/19 04:07 MCH 28.4 pg (27.0-33.4) 06/16/19 04:07 MCHC 34.1 g/dL (32.0-36.0) 06/16/19 04:07 RDW 13.4 % (11.5-14.0) 06/16/19 04:07 Plt Count 231 10^3/uL (150-450) 06/16/19 04:07 Lymph % (Auto) 30.4 % (13-45) 06/16/19 04:07 [place] % (Auto) 10.2 % (3-13) 06/16/19 04:07 Eos % (Auto) 3.2 % (0-6) 06/16/19 04:07 Baso % (Auto) 1.2 % (0-2) 06/16/19 04:07 Absolute Neuts (auto) 5.8 10^3/uL (1.7-8.2) 06/16/19 04:07 Absolute Lymphs (auto) 3.2 10^3/uL (0.5-4.7) 06/16/19 04:07 Absolute Monos (auto) 1.1 10^3/uL (0.1-1.4) 06/16/19 04:07 Absolute Eos (auto) 0.3 10^3/uL (0.0-0.6) 06/16/19 04:07 Absolute Basos (auto) 0.1 10^3/uL (0.0-0.2) 06/16/19 04:07 Total Counted 100 06/14/19 03:48 Seg Neutrophils % 55.0 % (42-78) 06/16/19 04:07 Seg Neuts % (Manual) 84 % (42-78) H 06/14/19 03:48 Band Neutrophils % 4 % (3-5) 06/14/19 03:48 Lymphocytes % (Manual) 7 % (13-45) L 06/14/19 03:48 Monocytes % (Manual) 5 % (3-13) 06/14/19 03:48 Eosinophils % (Manual) 0 % (0-6) 06/14/19 03:48 Basophils % (Manual) 0 % (0-2) 06/14/19 03:48 Abs Neuts (Manual) 21.6 10^3/uL (1.7-8.2) H 06/14/19 03:48 Abs Lymphs (Manual) 1.7 10^3/uL (0.5-4.7) 06/14/19 03:48 Abs Monocytes (Manual) 1.2 10^3/uL (0.1-1.4) 06/14/19 03:48 Absolute Eos (Manual) 0.0 10^3/uL (0.0-0.6) 06/14/19 03:48 Abs Basophils (Manual) 0.0 10^3/uL (0.0-0.2) 06/14/19 03:48 Platelet Comment ADEQUATE 06/14/19 03:48 RBC Morph Comment NORMO-CYTIC/CHROMIC 06/14/19 03:48 Sodium 139.2 mmol/L (137-145) 06/16/19 04:07 Potassium 4.3 mmol/L (3.6-5.0) 06/16/19 04:07 Chloride 105 mmol/L (98-107) 06/16/19 04:07 Carbon Dioxide 28 mmol/L (22-30) 06/16/19 04:07 Anion Gap 6 (5-19) 06/16/19 04:07 BUN 16 mg/dL (7-20) 06/16/19 04:07 Creatinine 1.00 mg/dL (0.52-1.25) 06/16/19 04:07 Est GFR ( Amer) > 60 (>60) 06/16/19 04:07 Est GFR (MDRD) Non-Af > 60 (>60) 06/16/19 04:07 Glucose 85 mg/dL (75-110) 06/16/19 04:07 Calcium 8.9 mg/dL (8.4-10.2) 06/16/19 04:07 Total Bilirubin 0.1 mg/dL (0.2-1.3) L 06/16/19 04:07 Direct Bilirubin 0.1 mg/dL (0.0-0.4) 06/16/19 04:07 Neonat Total Bilirubin Not Reportable 06/16/19 04:07 Neonat Direct Bilirubin Not Reportable 06/16/19 04:07 Neonat Indirect Bili Not Reportable 06/16/19 04:07 AST 25 U/L (17-59) 06/16/19 04:07 ALT 34 U/L (<50) 06/16/19 04:07 Alkaline Phosphatase 47 U/L (38-126) 06/16/19 04:07 Total Protein 5.7 g/dL (6.3-8.2) L 06/16/19 04:07 Albumin 3.0 g/dL (3.5-5.0) L 06/16/19 04:07 Lipase 133.8 U/L (23-300) 06/13/19 00:30 Urine Color YELLOW 06/14/19 10:20 Urine Appearance CLEAR 06/14/19 10:20 Urine pH 5.0 (5.0-9.0) 06/14/19 10:20 Ur Specific [place] 1.024 06/14/19 10:20 Urine Protein NEGATIVE mg/dL (NEGATIVE) 06/14/19 10:20 Urine Glucose (UA) NEGATIVE mg/dL (NEGATIVE) 06/14/19 10:20 Urine Ketones NEGATIVE mg/dL (NEGATIVE) 06/14/19 10:20 Urine Blood NEGATIVE (NEGATIVE) 06/14/19 10:20 Urine Nitrite NEGATIVE (NEGATIVE) 06/14/19 10:20 Urine Bilirubin NEGATIVE (NEGATIVE) 06/14/19 10:20 Urine Urobilinogen NEGATIVE mg/dL (<2.0) 06/14/19 10:20 Ur Leukocyte Esterase NEGATIVE (NEGATIVE) 06/14/19 10:20 Urine WBC (Auto) 1 /HPF 06/14/19 10:20 Urine Mucus (Auto) RARE /LPF 06/14/19 10:20 Urine Ascorbic Acid NEGATIVE (NEGATIVE) 06/14/19 10:20 Impressions: Abdomen Ultrasound 06/13/19 00:23 IMPRESSION: Cholelithiasis with possible associated cholecystitis. Indeterminate right renal lesion.
[2019-06-16 11:00] VITALS: BP 120/54
== END 2019-06-16 12:17 | disposition home or self-care (01) | DRG 419 ==
LOC: ER 23:44 → EH 06-13 03:43 → 5 06-13 05:01
PROVIDERS: ADMIT Surgery; ATTEND Surgery
PROC: 0FT44ZZ Resection of Gallbladder, Percutaneous Endoscopic Approach (ICD-10-PCS; principal; 2019-06-13 09:00)
DX: K80.12 Calculus of gallbladder with acute and chronic cholecystitis without obstruction (principal); K82.A1 Gangrene of gallbladder in cholecystitis; F17.210 Nicotine dependence, cigarettes, uncomplicated; Z79.899 Other long term (current) drug therapy; Z82.49 Family history of ischemic heart disease and other diseases of the circulatory system
CPT/HCPCS: 36415; 76705; 790; 80053; 81001; 83690; 85025; 87070; 87075; 87205; 88304; 93005; 93010; 94799; J0131; J0295; J0330; J1100; J1170; J1650; J1885; J2250; J2270; J2405; J2543; J2704; J2710; J2765; J3010; J3490; J7030; J7050; S0028; S0164

== ENCOUNTER 2020-04-19 17:11 | Emergency (ER) | payer BC, MEDICAID ==
[2020-04-19 17:29] VITALS: BP 140/72
--- NOTE | 2020-04-19 19:22 | ER Document Report ---
ED Neck/Back Problem - General Chief Complaint: Back Pain Stated Complaint: BACK PAIN/ARM TINGLING Time Seen by Provider: 04/19/20 19:12 Primary Care Provider: [facility] [Provider Group] - Follow up as needed Mode of Arrival: Ambulatory Information source: Patient Notes: 39-year-old male presented to ED for complaint of back pain on the right side of his back upper and lower. He states that time he does have some right arm tingling. He also states that movement of the arms and shoulders makes the pain worse. He states she was doing a lot of yard work on Sunday. Breaking branches up and moving them. States he has been able to move all extremities and work since then but he has been having a lot of pain. He states he has been using ibuprofen and Flexeril and this is not helping with the pain. He states he does need to continue work. TRAVEL OUTSIDE OF THE [place] IN LAST 30 DAYS: No - HPI Patient complains to provider of: Pain, Upper back, Lower back Onset: Other - Sunday Where: Home, Outdoors Onset: Gradual Timing: Waxing and waning, Still present Quality of pain: Achy, Sharp Severity: Moderate Pain Level: 3 Context: Lifting, Turning Recent injury: Possibly Associated symptoms: Numbness/tingling - Right arm, Radiation to arm, Lower back pain - Right side, Upper back pain - Right side, Other - Denies any bony tenderness anywhere. denies: Incontinence, Radiation to chest, Radiation to leg, Sensory loss, Sweaty, Unable to urinate Exacerbated by: Movement of neck, Movement of trunk, Other - Moving his arms Relieved by: Nothing Similar symptoms previously: No Recently seen / treated by doctor: No - Related Data Allergies/Adverse Reactions: No Known Allergies Allergy (Verified 04/19/20 19:06) Past Medical History - General Information source: Patient - Social History Smoking Status: Current Every Day Smoker Cigarette use (# per day): Yes - Pack per day Chew tobacco use (# tins/day): No Smoking Education Provided: Yes - 3 minutes Frequency of alcohol use: None Drug Abuse: None Lives with: Family Family History: CAD Patient has homicidal ideation: No - Past Medical History Cardiac Medical History: Reports: None Pulmonary Medical History: Reports: None EENT Medical History: Reports: None Neurological Medical History: Reports: None Endocrine Medical History: Reports: None Renal/ Medical History: Reports: None Malignancy Medical History: Reports None GI Medical History: Reports: None Musculoskeletal Medical History: Reports Hx Musculoskeletal Trauma Skin Medical History: Reports None Psychiatric Medical History: Reports: None Traumatic Medical History: Reports: None Infectious Medical History: Reports: None Past Surgical History: Reports: Hx Cholecystectomy, Hx Orthopedic Surgery - left knee left meniscus - Immunizations Immunizations up to date: Yes Review of Systems - Review of Systems Constitutional: No symptoms reported EENT: No symptoms reported Cardiovascular: No symptoms reported Respiratory: No symptoms reported Gastrointestinal: No symptoms reported Genitourinary: No symptoms reported Male Genitourinary: No symptoms reported Musculoskeletal: Back pain, Muscle pain, Muscle stiffness Skin: No symptoms reported Hematologic/Lymphatic: No symptoms reported Neurological/Psychological: No symptoms reported -: Yes All other systems reviewed and negative Physical Exam - Vital signs Vitals: Temp Pulse Resp BP Pulse Ox 98.6 F 74 16 140/72 H 98 04/19/20 17:29 04/19/20 17:29 04/19/20 17:29 04/19/20 17:29 04/19/20 17:29 Interpretation: Normal - General General appearance: Appears well, Alert - HEENT Head: Normocephalic, Atraumatic Eyes: Normal Pupils: PERRL - Respiratory Respiratory status: No respiratory distress Chest status: Nontender Breath sounds: Normal Chest palpation: Normal - Cardiovascular Rhythm: Regular Heart sounds: Normal auscultation Murmur: No - Abdominal Inspection: Normal Distension: No distension Bowel sounds: Normal Tenderness: Nontender Organomegaly: No organomegaly - Back Back: Normal, Tender - Right upper and lower back muscle pain no bony tenderness no shoulder tenderness. No: Vertebra tenderness - Extremities General upper extremity: Normal inspection, Nontender, Normal color, Normal ROM, Normal temperature General lower extremity: Normal inspection, Nontender, Normal color, Normal ROM, Normal temperature, Normal weight bearing. No: Valarie's sign - Neurological Neuro grossly intact: Yes Cognition: Normal Orientation: AAOx4 [place] Coma Scale Eye Opening: Spontaneous [place] Coma Scale Verbal: Oriented Néstor Coma Scale Motor: Obeys Commands Né[place]or Coma Scale Total: 15 Speech: Normal Motor strength normal: LUE, RUE, LLE, RLE Sensory: Normal - Psychological Associated symptoms: Normal affect, Normal mood - Skin Skin Temperature: Warm Skin Moisture: Dry Skin Color: Normal Course - Re-evaluation Re-evalutation: 04/19/20 21:55 Patient was discharged home with prescriptions for naproxen and Robaxin. He was instructed to use ice packs warm packs shoulder exercises and low back exercises. He did not have any bony tenderness anywhere. He was able to have full range of motion to her shoulders and back. He states there is some discomfort but he is able to move it. He states he has been working at the car a lot since his pain started on Sunday. - Vital Signs Vital signs: Temp Pulse Resp BP Pulse Ox 98.6 F 74 16 140/72 H 98 04/19/20 19:06 04/19/20 17:29 04/19/20 17:29 04/19/20 17:29 04/19/20 17:29 Discharge - Discharge Clinical Impression: Upper back pain on right side Right low back pain Qualifiers: Chronicity: acute Sciatica presence: without sciatica Qualified Code(s): M54.5 - Low back pain Condition: Stable Disposition: HOME, SELF-CARE Additional Instructions: Muscle Strain You have strained a muscle -- torn the fibers within the muscle. This often occurs with strenuous exertion, or during an injury that suddenly stretches the muscle. The seriousness of a strain varies. Some strains heal within days, others cause problems for months. X-rays cannot show a muscle strain. X-rays are taken only if symptoms suggest that a fracture could be present. The usual treatment of a muscle strain is rest and ice packs. Sometimes, a sling, splint, or crutches may be necessary to rest the muscle. The muscle can be used again once pain subsides. Severe strains require a special exercise and stretching program to prevent permanent stiffness and disability. Your doctor will advise you if this will be necessary. Call the doctor immediately if pain or swelling becomes severe, or if numbness or discoloration develop. Muscle Relaxers Muscle relaxing medications are usually prescribed for acute muscle spasm or injury to the neck and back. They are often combined with antiinflammatory pain medication for increased relief. You may stop the muscle relaxer when the pain and stiffness have improved. Start the medication again if spasms recur. Muscle relaxers may cause drowsiness, especially with the first dose. Do not operate machinery or drive while under the effects of the medication. Most muscle relaxers last up to 24 hours. Do not combine the medication with alcohol. Anti-Inflammatory Medication You have received a prescription for an antiinflammatory agent. This is an excellent, safe drug for pain control. In addition, it has potent antiinflammatory effects which are beneficial, especially in the treatment of injuries, arthritis, or tendonitis. It's best to take this medicine with food. Persons with ulcer disease or allergy to aspirin should notify their physician of this before taking this drug. Take the medication exactly as prescribed. Don't take additional doses unless instructed to do so by your doctor. If you develop wheezing, shortness of breath, hives, faintness, stomach pain, vomiting, or dark black stools, return for re-evaluation at once. Ice Packs Apply ice packs frequently against the painful area. Many different schedules are recommended, such as "20 minutes on, 20 minutes off" or "one hour ice, two hours rest." If you need to work, you may need to go longer between ice treatments. You should plan to have the area ice packed AT LEAST one fourth of the time. The ice should be applied over the wrap, tape, or splint, or over a layer of cloth -- not directly against the skin. Some ice bags have a built-in cloth and can be put directly on the skin. Warm Packs After approximately two days, apply gentle heat (such as a heating pad or hot water bottle) for about 20 to 30 minutes about every two hours -- at least four times daily. Warmth and elevation will help you make a more rapid recovery, and will ease the pain considerably. Do not use HOT heat, and never apply heat for longer than 30 minutes. The continuous heat can invisibly damage skin and muscles -- even when no burn is seen on the surface. Damaged muscles can make you MORE sore. Exercise Program for the Shoulder Since the shoulder moves in so many directions, the joint attachment is weak. Muscles provide most of the stability to the shoulder. You must exercise your shoulder to prevent painful instability or stiffening. PASSIVE - These may be begun within a few days of the injury. While standing, lean forward, allowing the arm to hang down towards the floor. Move the arm in small circles while slowly twisting your chest towards and away from the hanging arm. Do this for one minute. ACTIVE - These may be performed when the doctor gives permission. Begin with the arms at the sides. Raise the arms forward (shoulder's width apart) until they reach shoulder level. Then slowly swing both arms back until they are aiming straight out away from each other. Then bring them forward again, and finally, lower them to your sides. Repeat 20 to 30 times. As you improve, put weights in your hands for the exercise. Start with one pound, and work up to 10 pounds. Never use more than is comfortable. Athletes may work up to 30 pounds. Stretching Exercises for the Back The physician has recommended that you begin stretching exercises for your back. These are often used even while the back is painful. However, you should notify the physician if the activities seem to increase your pain. PELVIC TILT: Lie flat on your back with knees bent. Tighten your stomach and buttock muscles so it flattens your lower back against the floor. Hold 10 seconds. Repeat 10 times, twice daily. KNEE RAISE: Lying on the back with knees bent, raise one knee to your chest, then the other. Hold both knees against the chest 10 seconds, then lower one knee at a time. Repeat 10 times, twice daily. PARTIAL TRUNK RAISE: Lie face down, arms at your sides. Keeping your waist on the floor, use your arms raise your chest up. Support yourself on your elbows for 30 seconds. Repeat twice daily, increasing the time to two minutes as you recover. FOLLOW-UP CARE: If you have been referred to a physician for follow-up care, call the physicians office for an appointment as you were instructed or within the next two days. If you experience worsening or a significant change in your symptoms, notify the physician immediately or return to the Emergency Department at any time for re-evaluation. Prescriptions: Naproxen 500 mg PO BIDP PRN #20 tablet PRN Reason: Methocarbamol [Robaxin 500 mg Tablet] 500 mg PO BIDP PRN #20 tablet PRN Reason: Forms: Elevated Blood Pressure, Smoking Cessation Education Referrals: [facility] [Provider Group] - Follow up as needed
== END 2020-04-19 19:25 | disposition home or self-care (01) ==
LOC: ER 17:11
DX: M79.18 Myalgia, other site (principal); R20.2 Paresthesia of skin; R20.0 Anesthesia of skin; F17.210 Nicotine dependence, cigarettes, uncomplicated
CPT/HCPCS: 99283